=== PATIENT | male | born 1970 | race Caucasian/White ===

== ENCOUNTER 2023-02-13 10:18 | Emergency (ER) | payer OTHER ==
[~2023-02-13] VITALS: Ht 172.7 cm; Wt 72.6 kg
--- OUTSIDE RECORDS SUMMARY | ~2023-02-13 | XMS | Continuity of Care Document ---
Demographics + + + | Address | [address] | | | [place] [address] | + + + | Preferred Language | Unknown | + + + | Marital Status | Never | + + + | Advent Affiliation | Unknown | + + + | Race | White | + + + | Ethnic Group | Not or | + + + Author + + + | Author | [facility] | + + + | Organization | [facility] | + + + | Address | [address] | | | [place] [address] | + + + | Phone | | + + + Care Team Providers + + + + | Care Cotton Inspector Name | Role | Phone | + + + + Unavailable | Unavailable | + + + + Unavailable | Unavailable | + + + + Allergies No information. Encounters No information. Functional Status No information. Immunizations No information. Medications No information. Problems + + + + | date | description | facility | + + + + | 2022-05-24 00:00 | Patient left without being | [facility] | | | seen | | + + + + Procedures No information. Results/Labs No information. Social History + + + + | date | description | facility | + + + + | 2022-05-24 00:00 | Unknown if ever smoked | [facility] | + + + + Vital Signs + + + +---------+ | date | measurement | value | units | + + + +---------+ | 2022-05-24 00:00 | BMI | 24.4 | kg/m2 | + + + +---------+ | 2022-05-24 00:00 | BP_diastolic | 78 | mmHg | + + + +---------+ | 2022-05-24 00:00 | BP_systolic | 145 | mmHg | + + + +---------+ | 2022-05-24 00:00 | heart_rate | 72 | /min | + + + +---------+ | 2022-05-24 00:00 | height_metric | 172.72 | cm | + + + +---------+ | 2022-05-24 00:00 | height_standard | 68 | in | + + + +---------+ | 2022-05-24 00:00 | o2_saturation | 99 | % | + + + +---------+ | 2022-05-24 00:00 | respiration_rate | 16 | /min | + + + +---------+ | 2022-05-24 00:00 | temperature_metric | 36.67 | C | | | | | | + + + +---------+ | 2022-05-24 00:00 | | 98 | F | | | temperature_standar | | | | | d | | | + + + +---------+ | 2022-05-24 00:00 | weight_metric | 72.8 | kg | + + + +---------+ | 2022-05-24 00:00 | weight_standard | 160.49 | lb | + + + +---------+ | 2022-05-24 00:00 | weight_standard | 160.5 | lb | + + + +---------+"
--- OUTSIDE RECORDS SUMMARY | ~2023-02-13 | XMS | Continuity of Care Document ---
Demographics + + + | Address | [address] | | | [place] [address] | + + + | Preferred Language | Unknown | + + + | Marital Status | Never | + + + | Sabianism Affiliation | Unknown | + + + | Race | White | + + + | Ethnic Group | Not or | + + + Author + + + | Author | [facility] | + + + | Organization | [facility] | + + + | Address | [address] | | | [place] [address] | + + + | Phone | | + + + Care Team Providers + + + + | Care Loom Fixer Name | Role | Phone | + [...] 00:00 | Patient left without being | [facility] | | | seen | | + + + + Procedures No information. Results/Labs No information. Social History + + + + | date | description | facility | + + + + | 2022-05-24 00:00 | Unknown if ever smoked | [facility] | + + + + Vital Signs [...]
[2023-02-13 10:58] LABS: BASOPHILS 0.4 % (0-2); EOSINOPHILS 2.9 % (0-6); HEMATOCRIT 38.1 % (35.0-50.0); HEMOGLOBIN 12.4 g/dL (12.0-18.0); LYMPHOCYTES 29.5 % (24-44); MCHC 32.4 g/dl (30-36); MCV 89.5 fl (81-99); MONOCYTES 11.5 % (0-12); NEUTROPHILS 55.7 % (39-80); PLATELET COUNT 181 K/uL (140-440); RBC 4.26 M/ul (4.3-5.7); RDW 13.4 (10.5-15.0)
[2023-02-13 11:13] LABS: ACETAMINOPHEN 0 ug/mL (10-30); ALBUMIN 3.7 g/dL (3.4-5.0); ALCOHOL, MEDICAL <3 ng/dL (<3); ALKALINE PHOSPHATASE 85 U/L (46-116); ALT (SGPT) 16 U/L (14-59); ANION GAP 10.7 (7-21); AST (SGOT) 19 U/L (15-37); BILIRUBIN, TOTAL 0.8 ng/dL (0.2-1.0); CALCIUM 8.7 mg/dL (8.5-10.1); CARBON DIOXIDE 27 mmol/L (21-32); CHLORIDE 101 mmol/L (98-107); GLOMERULAR FILTRATION RATE,EST 72 mL/min (>60); POTASSIUM 3.7 mmol/L (3.5-5.1); PROTEIN, TOTAL 7.8 g/dL (6.4-8.2); SALICYLATE 3.9 mg/dL (2.8-20.0); TSH, 3RD GENERATION 2.402 uIU/mL (0.358-3.740); UREA NITROGEN 18 mg/dL (7-18)
[2023-02-13] MEDS ORDERED: ANTIFUNGAL113 GM TOP (11:21)
[2023-02-13] MEDS ORDERED: BIKTARVY 50-201 EACH PO (11:22)
[2023-02-13 12:23] LABS: BILIRUBIN, URINE NEGATIVE (negative); BLOOD/HGB, URINE NEGATIVE (Negative); KETONE, URINE NEGATIVE (Negative); LEUK ESTERASE, URINE NEGATIVE (negative); NITRITE, URINE NEGATIVE (negative)
[2023-02-13 12:26] LABS: AMPHETAMINES, UR POSITIVE (NEGATIVE); MARIJUANA (THC), UR POSITIVE (NEGATIVE)
[2023-02-13 12:27] LABS: BARBITURATES, UR NEGATIVE (NEGATIVE); BENZODIAZEPINES, UR NEGATIVE (NEGATIVE); BUPRENORPHINE,UR NEGATIVE (NEGATIVE); COCAINE, UR NEGATIVE (NEGATIVE); MDMA, UR POSITIVE (NEGATIVE); METHADONE, UR NEGATIVE (NEGATIVE); METHAMPHETAMINE, UR POSITIVE (NEGATIVE); OPIATES, UR NEGATIVE (NEGATIVE); OXYCODONE, UR NEGATIVE (NEGATIVE); PHENCYCLIDINE, UR NEGATIVE (NEGATIVE); TRICYCLIC ANTIDEPRESSANT, UR NEGATIVE (NEGATIVE)
[2023-02-13 16:28] LABS: INFLUENZA B NAA NEGATIVE (NEGATIVE); RESPIRATORY SYNCYTIAL VIR NAA NEGATIVE (NEGATIVE)
[2023-02-14 07:27] VITALS: BP 123/79
--- NOTE | 2023-02-14 23:17 | EKG ---
[facility] [address] [place] [address] Signed Normal sinus rhythm with sinus arrhythmia Normal ECG No previous ECGs available Confirmed by Jordan Pollock MD () on 02/14/2023 11:17:20 PM Electronically Signed By: JORDAN POLLOCK MD 02/14/23 2317 PATIENT NAME: ANDRZEJ NUGENT Electrocardiogram DATE OF : 68 PHYSICIAN: JORDAN POLLOCK MD REPORT #: [id number] REPORT IS CONFIDENTIAL AND NOT TO BE RELEASED WITHOUT AUTHORIZATION
== END 2023-02-14 07:34 ==
LOC: ED 10:18
PROVIDERS: Student in an Organized Health Care Education/Training Program
DX: R45.851 Suicidal ideations (principal); F15.99 Other stimulant use, unspecified with unspecified stimulant-induced disorder; G43.909 Migraine, unspecified, not intractable, without status migrainosus
CPT/HCPCS: 36415; 80053; 81003; 84443; 85025; 87502; 93005; 93010; C9803; G0480; U0002